=== PATIENT | male | born 1980 | race Caucasian/White ===

== ENCOUNTER 2016-12-15 11:20 | Observation (INO) | payer OTHER ==
[~2016-12-15] VITALS: Ht 185.4 cm; Wt 105.4 kg
[2016-12-15 14:18] LABS: HEMOGLOBIN 15.2 gm/dl (14.0-17.5); RED BLOOD COUNT 4.98 M/UL (4.20-5.50); WHITE BLOOD COUNT 6.5 K/UL (4.5-11.0)
[2016-12-15] MEDS ORDERED: MOBIC15 MG PO (20:36)
[2016-12-16 03:45] LABS: HEMOGLOBIN 14.6 gm/dl (14.0-17.5); RED BLOOD COUNT 4.86 M/UL (4.20-5.50); WHITE BLOOD COUNT 7.5 K/UL (4.5-11.0)
[2016-12-16] MEDS ORDERED: PROTONIX40 MG PO (17:45)
== END 2016-12-16 18:08 | disposition home or self-care (01) ==
LOC: ER1 11:20 → M/S 17:00 → ZEROF 17:00 → M/S 19:58
PROVIDERS: Physician Assistant; Specialist/Technologist Athletic Trainer; ADMIT Family Medicine
DX: R07.89 Other chest pain (principal); N17.9 Acute kidney failure, unspecified; F17.210 Nicotine dependence, cigarettes, uncomplicated; Z83.3 Family history of diabetes mellitus; Z82.49 Family history of ischemic heart disease and other diseases of the circulatory system; Z90.49 Acquired absence of other specified parts of digestive tract
CPT/HCPCS: 36415; 71010; 80048; 80053; 80061; 80307; 81001; 82550; 82553; 83735; 83874; 84484; 85025; 85027; 85379; 85610; 85730; 93005; 96374; 99285; G0378; J1885; J7030

== ENCOUNTER → 2017-01-24 | Outpatient (CLI) | payer OTHER ==
[~2017-01-24] MED LIST: MOBIC15 MG PO; PROTONIX40 MG PO
== END ==
LOC: KOH-I 15:56
DX: M25.562 Pain in left knee (principal)
CPT/HCPCS: 73562